=== PATIENT | male | born 1965 | race Caucasian/White ===

== ENCOUNTER 2020-06-01 06:48 | Outpatient (REF) | payer BC, SELFPAY ==
[2020-06-01 07:48] LABS: MANUAL DIFF FLAG NO
[2020-06-01 07:51] LABS: Basophils Percent Auto 0.4 % (0-2); Eosinophils Absolute Auto 0.2 X10*3/uL (0.0-0.4); Eosinophils Percent Auto 2.5 % (0-4); Hematocrit 47.1 % (42-52); Hemoglobin 15.2 g/dl (14.0-18.0); Imm Gran Abs Auto 0.02 X10*3/uL (0.00-0.03); Imm Gran Pct Auto 0.3 % (0.0-0.4); Lymphocytes Absolute Auto 2.1 X10*3/uL (1.2-4.9); Lymphocytes Percent Auto 31.9 % (20-40); Mean Corpuscular HGB Conc 32.3 g/dl (31.0-36.0); Mean Corpuscular Hemoglobin 28.6 pg (27.0-33.0); Mean Corpuscular Volume 88.5 fL (80-98); Mean Platelet Volume 9.8 fL (9.4-12.4); Monocytes Absolute Auto 0.8 X10*3/uL (0.1-1.2); Monocytes Percent Auto 11.6 % (2-11); Neutrophils Absolute Auto 3.6 X10*3/uL (2.0-8.3); Neutrophils Percent Auto 53.3 % (45-73); Platelet Count 316 X10*3/uL (160-400); Red Blood Count 5.32 X10*6/uL (4.60-5.80); Red Cell Distribution Width 13.6 % (11.0-16.0); White Blood Count 6.7 X10*3/uL (4.8-10.8)
[2020-06-01 08:09] LABS: Glucose Urine UA NEG (NEG); Leukocyte Esterase Urine NEG (NEG); Nitrite Urine NEG (NEG); PH 6.5 (5.0-8.0); Urine Blood NEG (NEG); Urine Ketones NEG (NEG); Urine Protein NEG (NEG-TRACE)
[2020-06-01 08:11] LABS: Appearance Urine CLEAR; Color Urine YELLOW
[2020-06-01 08:16] LABS: Alanine Aminotransferase 35 U/L (0-40); Albumin Level 4.5 g/dL (3.5-5.0); Alkaline Phosphatase 34 U/L (39-117); Anion Gap 12 (12-20); Aspartate Amino Transferase 18 U/L (5-37); Bilirubin Total < 0.2 mg/dL (0.0-1.0); Blood Urea Nitrogen 15 mg/dL (9-16); Calcium 9.8 mg/dL (8.4-10.2); Carbon Dioxide 28 mmol/L (22-29); Chloride 106 mmol/L (96-108); Cholesterol 195 mg/dL; Estimated Glomerular Filt Rate > 60; Glucose Fasting 96 mg/dL (60-99); HDL Cholesterol 42 mg/dL; LDL Cholesterol Calculated 134 mg/dl; Potassium 4.5 mmol/l (3.3-5.1); Sodium 141 mmol/L (135-145); Total Protein 7.2 g/dL (6.5-8.0); Triglycerides 99 mg/dL
[2020-06-01 08:37] LABS: Prostate Specific Antigen 1.24 ng/mL (<0.05-4.0)
== END 2020-06-01 06:49 | disposition home or self-care (01) ==
LOC: HO.LAB 06:48
PROVIDERS: Visit Provider Internal Medicine
DX: Z00.00 Encounter for general adult medical examination without abnormal findings (principal)
CPT/HCPCS: 36415; 80053; 80061; 81003; 84153; 85025

== ENCOUNTER 2020-12-25 06:07 | Outpatient (REF) | payer BC, SELFPAY ==
[2020-12-25 11:45] LABS: Alanine Aminotransferase 28 U/L (0-40); Albumin Level 4.6 g/dL (3.5-5.0); Alkaline Phosphatase 36 U/L (39-117); Anion Gap 16 (12-20); Aspartate Amino Transferase 20 U/L (5-37); Bilirubin Total 0.2 mg/dL (0.0-1.0); Blood Urea Nitrogen 15 mg/dL (9-16); Calcium 9.7 mg/dL (8.4-10.2); Carbon Dioxide 26 mmol/L (22-29); Chloride 106 mmol/L (96-108); Cholesterol 176 mg/dL; Estimated Glomerular Filt Rate > 60; Glucose Fasting 89 mg/dL (60-99); HDL Cholesterol 40 mg/dL; LDL Cholesterol Calculated 118 mg/dl; Potassium 4.8 mmol/L (3.3-5.1); Sodium 143 mmol/L (135-145); Total Protein 7.1 g/dL (6.5-8.0); Triglycerides 94 mg/dL
== END 2020-12-25 06:08 | disposition home or self-care (01) ==
LOC: HO.HMGCLDS 06:07
PROVIDERS: PCP Internal Medicine; Visit Provider Internal Medicine
DX: E78.5 Hyperlipidemia, unspecified (principal); I10 Essential (primary) hypertension
CPT/HCPCS: 36415; 80053; 80061

== ENCOUNTER 2021-05-27 11:59 | Outpatient (REF) | payer BC, SELFPAY ==
--- NOTE | ~2021-05-27 | XR_ITS ---
EXAMINATION: STANDING VIEW BOTH KNEES WITH 3 ADDITIONAL VIEWS RIGHT KNEE CLINICAL INFORMATION: Knee pain. COMPARISON: None TECHNIQUE: Single weightbearing view of both knees. 3 additional views right knee. FINDINGS: There is minimal narrowing of both medial compartments, right slightly greater than left. No other abnormalities are seen. No significant joint effusion is present. XR/XR knee standing BI IMPRESSION: Minimal narrowing of the medial compartments bilaterally, right greater than left.
--- NOTE | ~2021-05-27 | XR_ITS ---
EXAMINATION: STANDING VIEW BOTH KNEES WITH 3 ADDITIONAL VIEWS RIGHT KNEE CLINICAL INFORMATION: Knee pain. COMPARISON: None TECHNIQUE: Single weightbearing view of both knees. 3 additional views right knee. FINDINGS: There is minimal narrowing of both medial compartments, right slightly greater than left. No other abnormalities are seen. No significant joint effusion is present. XR/XR knee RT 2V IMPRESSION: Minimal narrowing of the medial compartments bilaterally, right greater than left.
== END 2021-05-27 12:00 | disposition home or self-care (01) ==
LOC: HO.HOSX 11:59
PROVIDERS: Visit Provider Orthopaedic Surgery
DX: S83.241A Other tear of medial meniscus, current injury, right knee, initial encounter (principal)
CPT/HCPCS: 73560; 73565

== ENCOUNTER 2021-09-27 09:28 | Outpatient (REF) | payer BC, SELFPAY ==
[2021-09-27 11:42] LABS: MANUAL DIFF FLAG NO
[2021-09-27 11:51] LABS: Basophils Percent Auto 0.5 % (0-2); Eosinophils Absolute Auto 0.1 X10*3/uL (0.0-0.4); Eosinophils Percent Auto 1.6 % (0-4); Hematocrit 43.6 % (42.0-52.0); Hemoglobin 14.4 g/dl (14.0-18.0); Imm Gran Abs Auto 0.03 X10*3/uL (0.00-0.03); Imm Gran Pct Auto 0.5 % (0.0-0.4); Lymphocytes Absolute Auto 1.8 X10*3/uL (1.2-4.9); Lymphocytes Percent Auto 28.8 % (20-40); Mean Corpuscular Hemoglobin 29.4 pg (27.0-33.0); Monocytes Absolute Auto 0.7 X10*3/uL (0.1-1.2); Monocytes Percent Auto 10.9 % (2-11); Neutrophils Absolute Auto 3.7 x10*3/uL (2.0-8.3); Neutrophils Percent Auto 57.7 % (45-73); Platelet Count 330 X10*3/uL (160-400); Red Cell Distribution Width 13.3 % (11.0-16.0); White Blood Count 6.4 X10*3/uL (4.8-10.8)
[2021-09-27 12:03] LABS: Alanine Aminotransferase 34 U/L (0-40); Albumin Level 4.5 g/dL (3.5-5.0); Alkaline Phosphatase 40 U/L (39-117); Anion Gap 13 (12-20); Aspartate Amino Transferase 24 U/L (5-37); Bilirubin Total 0.5 mg/dL (0.0-1.0); Blood Urea Nitrogen 14 mg/dL (9-16); Carbon Dioxide 25 mmol/L (22-29); Chloride 107 mmol/L (96-108); Cholesterol 192 mg/dL; Estimated Glomerular Filt Rate > 60; Glucose Fasting 94 mg/dL (60-99); HDL Cholesterol 42 mg/dL; LDL Cholesterol Calculated 129 mg/dl; Potassium 4.8 mmol/L (3.3-5.1); Sodium 140 mmol/L (135-145); Total Protein 7.2 g/dL (6.5-8.0); Triglycerides 107 mg/dL
[2021-09-27 12:27] LABS: Prostate Specific Antigen Scr 1.46 ng/mL (<0.05-4.0)
== END 2021-09-27 09:29 | disposition home or self-care (01) ==
LOC: HO.HMGCLDS 09:28
PROVIDERS: Visit Provider Internal Medicine
DX: Z00.00 Encounter for general adult medical examination without abnormal findings (principal); Z12.5 Encounter for screening for malignant neoplasm of prostate
CPT/HCPCS: 36415; 80053; 80061; 84153; 85025

== ENCOUNTER 2022-09-26 06:57 | Outpatient (REF) | payer BC, SELFPAY ==
[2022-09-26 11:36] LABS: MANUAL DIFF FLAG NO
[2022-09-26 11:47] LABS: Basophils Absolute Auto 0.1 X10*3/uL (0.0-0.2); Basophils Percent Auto 0.7 % (0-2); Eosinophils Absolute Auto 0.3 X10*3/uL (0.0-0.4); Eosinophils Percent Auto 3.8 % (0-4); Hematocrit 47.3 % (42.0-52.0); Hemoglobin 15.4 g/dl (14.0-18.0); Imm Gran Abs Auto 0.02 X10*3/uL (0.00-0.03); Imm Gran Pct Auto 0.3 % (0.0-0.4); Lymphocytes Absolute Auto 2.2 X10*3/uL (1.2-4.9); Lymphocytes Percent Auto 29.7 % (20-40); Mean Corpuscular HGB Conc 32.6 g/dl (31.0-36.0); Mean Corpuscular Hemoglobin 28.9 pg (27.0-33.0); Mean Corpuscular Volume 88.7 fL (80.0-98.0); Mean Platelet Volume 9.9 fL (9.4-12.4); Monocytes Absolute Auto 0.8 X10*3/uL (0.1-1.2); Monocytes Percent Auto 11.3 % (2-11); Neutrophils Percent Auto 54.2 % (45-73); Platelet Count 353 X10*3/uL (160-400); Red Blood Count 5.33 X10*6/uL (4.60-5.80); Red Cell Distribution Width 13.9 % (11.0-16.0); White Blood Count 7.3 X10*3/uL (4.8-10.8)
[2022-09-26 11:53] LABS: Appearance Urine Clear; Color Urine Yellow; Glucose Urine UA Negative (Negative); Leukocyte Esterase Urine Negative (Negative); Nitrite Urine Negative (Negative); Urine Blood Negative (Negative); Urine Ketones Negative (Negative); Urine Protein Negative (Neg-Trace)
[2022-09-26 12:40] LABS: Alanine Aminotransferase 41 U/L (0-40); Albumin Level 4.5 g/dL (3.5-5.0); Alkaline Phosphatase 36 U/L (39-117); Anion Gap 12 (12-20); Aspartate Amino Transferase 23 U/L (5-37); Bilirubin Total 0.3 mg/dL (0.0-1.0); Blood Urea Nitrogen 17 mg/dL (9-16); Calcium 9.3 mg/dL (8.4-10.2); Carbon Dioxide 25 mmol/L (22-29); Chloride 107 mmol/L (96-108); Cholesterol 223 mg/dL; Estimated Glomerular Filt Rate > 60; Glucose Fasting 98 mg/dL (60-99); HDL Cholesterol 42 mg/dL; LDL Cholesterol Calculated 148 mg/dl; Potassium 4.2 mmol/L (3.3-5.1); Sodium 140 mmol/L (135-145); Total Protein 7.1 g/dL (6.5-8.0); Triglycerides 167 mg/dL
[2022-09-26 13:00] LABS: Prostate Specific Antigen 1.47 ng/mL (<0.05-4.0)
== END 2022-09-26 06:58 | disposition home or self-care (01) ==
LOC: HO.HMGCLDS 06:57
PROVIDERS: PCP Internal Medicine; Visit Provider Internal Medicine
DX: Z00.00 Encounter for general adult medical examination without abnormal findings (principal); Z12.5 Encounter for screening for malignant neoplasm of prostate
CPT/HCPCS: 36415; 80053; 80061; 81003; 84153; 85025

== ENCOUNTER 2023-01-25 09:26 | Outpatient (REF) | payer BC, SELFPAY ==
[2023-01-25 13:52] LABS: Alanine Aminotransferase 52 U/L (0-40); Aspartate Amino Transferase 28 U/L (5-37); Cholesterol 151 mg/dL; HDL Cholesterol 42 mg/dL; LDL Cholesterol Calculated 81 mg/dl; Triglycerides 144 mg/dL
== END 2023-01-25 09:27 | disposition home or self-care (01) ==
LOC: HO.10HDL 09:26
PROVIDERS: Visit Provider Internal Medicine
DX: E78.00 Pure hypercholesterolemia, unspecified (principal); I10 Essential (primary) hypertension
CPT/HCPCS: 36415; 80061; 82550; 84450; 84460

== ENCOUNTER 2023-04-04 14:59 | Outpatient (REF) | payer BC, SELFPAY ==
--- NOTE | ~2023-04-04 | XR_ITS ---
EXAMINATION: XR ABDOMEN KUB CLINICAL INDICATION: Abdominal pain COMPARISON: None available. TECHNIQUE: AP view of the abdomen. FINDINGS: The bowel gas pattern is normal with no evidence of ileus or obstruction. No unusual soft tissue calcifications are noted. There are markers of mesh in the lower abdomen The bones are unremarkable. XR/XR KUB IMPRESSION: Unremarkable examination.
== END 2023-04-04 15:00 | disposition home or self-care (01) ==
LOC: HO.LAB 14:59
PROVIDERS: PCP Internal Medicine; Visit Provider Internal Medicine
DX: R10.9 Unspecified abdominal pain (principal)
CPT/HCPCS: 36415; 74018; 82550; 86140

== ENCOUNTER 2023-09-18 09:43 | Outpatient (REF) | payer BC, SELFPAY ==
[2023-09-18 10:20] LABS: MANUAL DIFF FLAG NO
[2023-09-18 10:46] LABS: Basophils Percent Auto 0.4 % (0-2); Eosinophils Absolute Auto 0.2 X10*3/uL (0.0-0.4); Eosinophils Percent Auto 2.1 % (0-4); Hemoglobin 15.6 g/dl (14.0-18.0); Imm Gran Abs Auto 0.01 X10*3/uL (0.00-0.03); Imm Gran Pct Auto 0.1 % (0.0-0.4); Lymphocytes Absolute Auto 1.9 X10*3/uL (1.2-4.9); Lymphocytes Percent Auto 26.7 % (20-40); Mean Corpuscular HGB Conc 33.2 g/dl (31.0-36.0); Mean Corpuscular Hemoglobin 28.8 pg (27.0-33.0); Mean Corpuscular Volume 86.9 fL (80.0-98.0); Mean Platelet Volume 9.5 fL (9.4-12.4); Monocytes Absolute Auto 0.8 X10*3/uL (0.1-1.2); Monocytes Percent Auto 11.2 % (2-11); Neutrophils Absolute Auto 4.2 x10*3/uL (2.0-8.3); Neutrophils Percent Auto 59.5 % (45-73); Platelet Count 303 X10*3/uL (160-400); Red Blood Count 5.41 X10*6/uL (4.60-5.80); Red Cell Distribution Width 13.3 % (11.0-16.0)
[2023-09-18 11:29] LABS: Alanine Aminotransferase 29 U/L (0-40); Albumin Level 4.6 g/dL (3.5-5.0); Alkaline Phosphatase 36 U/L (39-117); Anion Gap 12 (12-20); Aspartate Amino Transferase 23 U/L (5-37); Bilirubin Total 0.4 mg/dL (0.0-1.0); Blood Urea Nitrogen 14 mg/dL (9-16); Carbon Dioxide 27 mmol/L (22-29); Chloride 105 mmol/L (96-108); Estimated Glomerular Filt Rate > 60; Glucose Random 89 mg/dL (60-115); Sodium 140 mmol/L (135-145); Total Protein 7.8 g/dL (6.5-8.0)
== END 2023-09-18 09:44 | disposition home or self-care (01) ==
LOC: HO.10HDL 09:43
PROVIDERS: Visit Provider Internal Medicine
DX: I10 Essential (primary) hypertension (principal); E78.5 Hyperlipidemia, unspecified
CPT/HCPCS: 36415; 80053; 85025

== ENCOUNTER 2024-11-04 14:32 | Outpatient (AMB) | payer BC, SELFPAY ==
--- NOTE | 2024-11-04 14:34 | MHC.PC.OV ---
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 He manages ongoing essential hypertension with lisinopril 5 mg daily. Home monitory reports typically show blood pressure readings around 126/80 mmHg; however, diastolic levels rise to 88-90 mmHg without medication. The patient also addresses hyperlipidemia with atorvastatin and fenofibrate. He reports inadequate adherence to a low sodium diet and mentions efforts to reduce food intake to facilitate weight loss. Despite daily exercise, weight has remained at approximately 190 lbs, below his goal weight in the 170s. Health Maintenance - Blood pressure management with lisinopril, currently 5 mg daily. - Hyperlipidemia managed with atorvastatin and fenofibrate. - Routine walking for exercise, 2-5 miles daily. - Encouragement to incorporate resistance training for additional health benefits. - Recommendations to improve dietary habits by reducing sodium intake, increasing protein, and incorporating vegetables while moderating carbohydrate consumption. Social History - Walks dog daily, covering 2-5 miles. - Goal weight is in the 170s, currently at 190 lbs. - Dietary intake includes toast for breakfast, sandwiches (grilled cheese or tuna) for lunch, and dinners like chicken, pork, and carbs (potatoes or rice). Review of Systems - Cardiovascular: Reports stable blood pressure with lisinopril; denies chest pain, palpitations. - Respiratory: Denies shortness of breath. - Gastrointestinal: Denies changes in appetite or diet impacting health. - Musculoskeletal: Reports exercise regimen of walking and some resistance training. - General: Denies significant weight change; reports effort to manage weight. Physical Exam - Vitals- Blood pressure 130/80 mmHg. - Respiratory- Lungs clear bilaterally; no wheezing noted. - Heart- RRR, no murmurs Results Plan We encouraged ongoing management with lisinopril for essential hypertension, with recent readings showing controlled levels. We continue current atorvastatin and fenofibrate for hyperlipidemia while emphasizing improvements in diet and exercise. Recommended incorporating resistance training into the routine. Ordered laboratory evaluations to monitor cholesterol, kidney function, and diabetes risk. Presented records to the patient for new primary care with emphasis on optimizing cardiovascular health. Patient was informed and verbally consented to the use of an ambient scribe for clinic note documentation during this visit. Discussion Notes I discussed the ongoing management of essential hypertension with lisinopril, highlighting the significance of maintaining blood pressure within normal ranges. We reviewed hyperlipidemia management with atorvastatin and fenofibrate, stressing the importance of dietary adjustments to support these treatments. I recommended incorporating resistance training to complement the patient's existing exercise routine for added cardiovascular and musculoskeletal benefits. Ordered laboratory tests for comprehensive assessment with BMP, liver panel, CBC, and Hgb A1c. Discussed that lifestyle changes might allow for potential medication reduction if targets are achieved. We planned the next visit in six months unless changes in the patient's care occur and confirmed his understanding of using the patient portal for queries. Patient Instructions - Continue lisinopril 5 mg daily for blood pressure. - Maintain atorvastatin and fenofibrate for cholesterol management. - Walk daily and add resistance training exercises if possible. - Follow a low sodium, high protein diet with more vegetables. - Be aware of carbohydrate intake. - Complete recommended labs today. - Follow up in six months or as needed. - Reach out via patient portal or phone if any concerns arise. [facility], [facility] Medical History (Updated 11/04/24 @ 14:44 by MARI Quiroz) Hypertension Surgical History History of colonoscopy (~08/23/22) History of colon surgery Family History (Updated 11/04/24 @ 14:45 by Elyse Guerra MA) Mother No problems noted. Father No problems noted. Social History Housing: House Patient Tobacco Use Status: Former Tobacco user e-Cigarette/Vaping Use: Former Use service: No Current occupational status: employed Cognitive needs: No Hearing needs: No Vision needs: Yes (rx glasses) Questionnaire PHQ-9 Over the last 2 weeks, how often have you been bothered by any of the following problems? 1. Little interest or pleasure in doing things: not at all 2. Feeling down, depressed, or hopeless: not at all 3. Trouble falling or staying asleep, or sleeping too much: not at all 4. Feeling tired or having little energy: not at all 5. Poor appetite or overeating: not at all 6. Feeling bad about yourself - or that you are a failure or have let yourself or your family down: not at all 7. Trouble concentrating on things, such as reading the newspaper or watching television: not at all 8. Moving or speaking so slowly that other people could have noticed. Or the opposite - being so fidgety or restless that you have been moving around a lot more than usual: not at all 9. Thoughts that you would be better off or of hurting yourself in some way: not at all Total score: 0 Source: Developed by Drs. John Seo, Nilam Cornell, Mat Mon and colleagues, with an educational khadra from [email or web address]. Thrive Questionnaire Date Thrive assessed: 11/04/24 I am a: Patient Within the past 12 months, did the food you bought not last and you didn't have the money to get more?: Never true Within the past 12 months, did you worry whether your food would run out before you got money to buy more?: Never true Do you have trouble paying for medicines?: No Do you have trouble getting transportation to medical appointments?: No Do you have trouble paying your heating and electricity bill?: No Do you have trouble taking care of your child, family member or friend?: No Do you have trouble with day-to-day activities such as bathing, preparing meals, shopping, managing finances, etc.?: No Are you currently unemployed and looking for a job?: No Are you interested in more education?: No THRIVE Score: 0 AUDIT C Alcohol Use Questionnaire (AUDIT-C) 1. How often do you have a drink containing alcohol?: Never 3. How often do you have six or more drinks on one occasion?: Never Total Score: 0 SENG-7 AMB Questionnaire SENG-7 Date SENG - 7 assessed: 11/04/24 Feeling nervous, anxious, or on edge: 0 = Not at all Not being able to stop or control worryin = Not at all Worrying too much about different things: 0 = Not at all Trouble relaxin = Not at all Being so restless that it is hard to sit still: 0 = Not at all Becoming easily annoyed or irritable: 0 = Not at all Feeling afraid as if something awful might happen: 0 = Not at all Total SENG-7 score (0-4 normal; 5-9 mild; 10-14 moderate; 15-21 severe): 0 Source: Developed by Drs. John Seo, Nilam Cornell, Mat Mon and colleagues, with an educational khadra from [email or web address]. Physical exam (Primary Care) Vital Signs: Last Vital Signs Temp 97.5 F 11/04/24 14:35 Pulse 88 11/04/24 14:35 BP 130/80 11/04/24 14:35 Pulse Ox 96 11/04/24 14:35 Oxygen Delivery Method Room Air 11/04/24 14:35 BMI result Body Mass Index 32.3 Tobacco/Smoking Status: Tobacco use Status Tobacco use date assessed 11/04/24 11/04/24 14:39 Patient Tobacco Use Status Former Tobacco user 11/04/24 14:46 e-Cigarette/Vaping Use Former Use 11/04/24 14:46 PHQ-9: PHQ-9 Score PHQ-9: Total score 0 11/04/24 14:48 Thrive Assessment: Date of Thrive Assessment Date Thrive assessed 11/04/24 11/04/24 14:39 Coding Level of Care Code New Pt Level 4 (23861) Diagnoses Hypertension I10 Obesity, Class I, BMI 30-34.9 E66.811 Assessment & Plan Assessment & Plan (1) Hypertension: Code(s): I10 - Essential (primary) hypertension Category: Medical Plan: Continue lisinopril 5mg daily. Low sodium diet. Check BMP (2) Obesity, Class I, BMI 30-34.9: Code(s): E66.811 - Obesity, class 1 Plan: Recommendations as above. Weight is stable overall Plan Orders: Orders Basic Metabolic Panel Today I10 - Essential (primary) hypertension, Z13.1 - Encounter for screening for diabetes mellitus, Z13.220 - Encounter for screening for lipoid disorders Lipid Panel Today I10 - Essential (primary) hypertension, Z13.1 - Encounter for screening for diabetes mellitus, Z13.220 - Encounter for screening for lipoid disorders Hemoglobin A1c Today I10 - Essential (primary) hypertension, Z13.1 - Encounter for screening for diabetes mellitus, Z13.220 - Encounter for screening for lipoid disorders Complete Blood Count Auto Diff Today I10 - Essential (primary) hypertension, Z13.1 - Encounter for screening for diabetes mellitus, Z13.220 - Encounter for screening for lipoid disorders Liver Panel Today I10 - Essential (primary) hypertension, Z13.1 - Encounter for screening for diabetes mellitus, Z13.220 - Encounter for screening for lipoid disorders
[2024-11-04 14:35] VITALS: BP 130/80; PULSE 88; TEMP 36.4; O2SAT 96; BMI 32.3
== END 2024-11-04 15:08 | disposition home or self-care (01) ==
LOC: HO.HMCHD 14:33
PROVIDERS: PCP Internal Medicine; Visit Provider Internal Medicine
DX: I10 Essential (primary) hypertension (principal); E66.811 Obesity, class 1

== ENCOUNTER → 2024-11-04 14:32 | Outpatient (BNVA) | payer BC, SELFPAY | PROVIDERS: PCP Internal Medicine; Visit Provider Internal Medicine ==